=== PATIENT | female | born 1980 | race Caucasian/White ===

== ENCOUNTER 2021-09-11 15:55 | Outpatient (CLI) | payer OTHER, SELFPAY ==
--- NOTE | 2021-09-11 16:19 | XR_ITS ---
WS: [id number] Right foot, 2 views, 09/11/2021 Clinical Data: RT. FOOT PAIN Comparison: None. Findings: No fractures or dislocations are seen. No bone destruction or erosion is noted. The joint spaces and soft tissues are normal. There is a small plantar spur. XR/XR foot RT 2V [id number] Impression: Negative right foot.
== END 2021-09-11 15:56 | disposition home or self-care (01) ==
PROVIDERS: PCP Family Medicine; Visit Provider Family Medicine
DX: M79.671 Pain in right foot (principal)
CPT/HCPCS: 73620

== ENCOUNTER → 2022-11-13 10:14 | Outpatient (BNVA) | payer OTHER, SELFPAY | PROVIDERS: PCP Family Medicine; Visit Provider Family Medicine | DX: R60.9 Edema, unspecified (principal); R00.0 Tachycardia, unspecified; R00.2 Palpitations; J32.9 Chronic sinusitis, unspecified | CPT/HCPCS: 84443; 85651; 86140 ==

== ENCOUNTER 2024-01-29 05:58 | Outpatient (CLI) | payer OTHER, SELFPAY ==
--- NOTE | 2024-01-29 06:30 | US_ITS ---
WS: [id number] US pelv w/transvag [id number] HISTORY: confirm IUD placement COMPARISON: None available. Uterus: 8.0 cm x 5.7 cm x 4.9 cm. Normal size anteverted uterus. No fibroid or mass. Endometrium: 0.8 cm. IUD is 6 noted along the endometrial canal in good position. There is no extensi on of the limbs into the myometrium. The adjacent endometrium is normal. IUD strings are noted along the cervical canal. Right ovary: 2.5 cm x 1.5 cm x 1.8 cm. Normal size and vascularity, no cystic or solid masses. Left ovary: 2.6 cm x 3.0 cm x 1.4 cm. Normal size and vascularity, no cystic or solid masses. Multipl e small follicles in the ovary. No free fluid in the cul-de-sac. IMPRESSION: 1. Normal position of the IUD. Strings are noted within the cervical canal. 2. Otherwise normal pelvic ultrasound.
== END 2024-01-29 05:59 | disposition home or self-care (01) ==
LOC: RAD 05:58
PROVIDERS: PCP Family Medicine; Visit Provider Family Medicine
DX: N92.0 Excessive and frequent menstruation with regular cycle (principal); R10.2 Pelvic and perineal pain; Z97.5 Presence of (intrauterine) contraceptive device
CPT/HCPCS: 76830; 76856

== ENCOUNTER → 2025-07-19 12:11 | Outpatient (BNVA) | payer OTHER, SELFPAY | PROVIDERS: PCP Family Medicine; Visit Provider Family Medicine | DX: R10.11 Right upper quadrant pain (principal) | CPT/HCPCS: 80053; 83690; 85025 ==